=== PATIENT | female | born 1970 | race Caucasian/White ===

== ENCOUNTER → 2018-05-21 | Outpatient (CLI) | payer BC ==
[~2018-05-21] MED LIST: ACETAMINOPHEN W1 TA6 PO; BUPROPION PO; CARDIZEM CD 12120 MG PO; CELEXA10 MG PO; DILTIAZEM; FASTIN30 MG PO; GLUCOPHAGE500 MG/TAB PO; HCTZ; HCTZ 25MG TAB25 MG PO; NORCO 325 MG-51 TAB PO; VALIUM 5MG T5 MG/TAB PO; WELLBUTRIN XL150 MG PO; ZESTRIL 5MG5 MG PO
== END ==
LOC: MC.RAD 07:40
DX: Z12.31 Encounter for screening mammogram for malignant neoplasm of breast (principal)

== ENCOUNTER 2018-11-24 22:06 | Emergency (ER) | payer BC ==
[~2018-11-24] VITALS: Ht 172.7 cm; Wt 120.5 kg
[2018-11-24 22:18] VITALS: TEMP 99.8
[2018-11-24 23:13] LABS: MEAN CELL VOLUME 75 fl (80.0-100.0); MEAN CORPUSCULAR HGB CONC 31 g/dl (33.0-37.0); MEAN PLATELET VOLUME 10.4 fl (7.4-10.4); PLATELET COUNT 417 K/mm3 (130-400); RED BLOOD COUNT 4.19 M/mm3 (4.10-5.30); REDCELL DISTRIBUTION WIDTH-CV 16.8 % (11.5-14.5)
[2018-11-24 23:16] LABS: HEMATOCRIT 31.4 % (37.0-47.0); HEMOGLOBIN 9.8 g/dl (12.5-16.0); MEAN CORPUSCULAR HEMOGLOBIN 23 pg (27.0-31.0)
[2018-11-24 23:21] LABS: ALANINE AMINOTRANSFERASE 20 U/L (9-52); ALBUMIN 3.8 gm/dL (3.5-5.0); ALKALINE PHOSPHATASE 89 U/L (50-136); ANION GAP 10 mmol/L (7-16); AST,SGOT 21 U/L (15-37); BILIRUBIN,TOTAL 0.2 mg/dL (0.0-1.0); BLOOD UREA NITROGEN 14 mg/dL (7-17); CALCIUM 8.8 mg/dL (8.4-10.2); CARBON DIOXIDE 25 mmol/L (22-30); CHLORIDE 105 mmol/L (98-107); CREATININE, serum 0.95 (0.52-1.25); GLUCOSE 104 mg/dL (74-106); LIPASE 141 U/L (23-300); POTASSIUM 3.5 mmol/L (3.4-5.0); SODIUM 140 mmol/L (137-145); TOTAL PROTEIN 6.9 gm/dL (6.4-8.2)
[2018-11-24 23:32] LABS: TROPONIN-I < 0.012 ng/mL (0.000-0.035)
[2018-11-24 23:43] LABS: BAND 5 % (0-10); BASOPHIL 1 % (0-2); EOSINOPHIL 2 % (0-4); LYMPHOCYTE 45 % (20.0-51.0); NEUTROPHILS 41 % (42.0-75.2); PLATELET ESTIMATE INCREASED (NORMAL)
[2018-11-24 23:44] LABS: ANISOCYTOSIS 1+; HYPERSEGMENTED POLYS PRESENT; HYPOCHROMIA 2+; POIKILOCYTOSIS 1+; POLYCHROMASIA 1+
[2018-11-25 01:48] VITALS: BP 106/71; PULSE 76
== END 2018-11-25 01:48 | disposition home or self-care (01) ==
LOC: COL.ER 22:06
PROVIDERS: Emergency Medicine
DX: R07.9 Chest pain, unspecified (principal); I10 Essential (primary) hypertension; E78.5 Hyperlipidemia, unspecified; K21.9 Gastro-esophageal reflux disease without esophagitis; F32.9 Major depressive disorder, single episode, unspecified; E66.9 Obesity, unspecified; R73.03 Prediabetes; Z79.84 Long term (current) use of oral hypoglycemic drugs; Z90.49 Acquired absence of other specified parts of digestive tract; Z98.890 Other specified postprocedural states

== ENCOUNTER → 2018-12-22 | Outpatient (CLI) | payer BC | LOC: COL.CARD 06:30 | DX: R07.9 Chest pain, unspecified (principal) ==

== ENCOUNTER 2020-03-19 01:16 | Inpatient (IN) | payer BC ==
[2020-03-19] VITALS (14 sets, daily range): BP systolic 110–135; BP diastolic 49–74; PULSE 60–83; TEMP 97.6–97.8
[~2020-03-19] VITALS: Ht 172.7 cm; Wt 116.8 kg
[2020-03-19 02:19] LABS: COLLECTION METHOD CLEAN CATCH
[2020-03-19 02:21] LABS: BASO % 0.2 % (0.0-2.0); EOS % 0.2 % (0-4.0); GRAN # 8.2 (1.4-6.5); HEMATOCRIT 39.9 % (37.0-47.0); HEMOGLOBIN 13.7 g/dl (12.5-16.0); LYMPH # 3.8 (1.2-3.4); LYMPH % 29.3 % (20.0-51.0); MEAN CELL VOLUME 84 fl (80.0-100.0); MEAN CORPUSCULAR HEMOGLOBIN 29 pg (27.0-31.0); MEAN CORPUSCULAR HGB CONC 34 g/dl (33.0-37.0); MEAN PLATELET VOLUME 10.7 fl (7.4-10.4); MONO # 0.9 (0.1-0.6); PLATELET COUNT 393 K/mm3 (130-400); RED BLOOD COUNT 4.73 M/mm3 (4.10-5.30); REDCELL DISTRIBUTION WIDTH-CV 13.3 % (11.5-14.5)
[2020-03-19 02:30] LABS: MUCOUS Present /lpf; PH 5 (5-8); URINE APPEARANCE Hazy; URINE BACTERIA None Seen /hpf; URINE BILIRUBIN Negative (NEGATIVE); URINE BLOOD Negative (NEGATIVE); URINE COLOR Yellow; URINE GLUCOSE Negative (NEGATIVE); URINE KETONE Negative (NEGATIVE); URINE LEUKOCYTE ESTERASE Negative (NEGATIVE); URINE NITRATE Negative (NEGATIVE); URINE PROTEIN(semi-quant) Negative (NEGATIVE); URINE RBC 0-2 /hpf; URINE UROBILINOGEN Negative (NEGATIVE)
[2020-03-19 02:32] LABS: ALBUMIN 4.4 gm/dL (3.5-5.0); BILIRUBIN,TOTAL 0.6 mg/dL (0.0-1.0); CREATININE, serum 0.8 (0.52-1.25); TOTAL PROTEIN 7.5 gm/dL (6.4-8.2)
[2020-03-19 02:35] LABS: POTASSIUM 2.9 mmol/L (3.4-5.0)
[2020-03-19] MEDS ORDERED: LIPITOR 10MG10 MG PO (06:07)
[2020-03-19] MEDS ORDERED: PROFERRIN ES12 MG PO (06:08)
[2020-03-19] MEDS ORDERED: CARDIZEM CD 12120 MG PO (06:08)
[2020-03-19] MEDS ORDERED: DINO-LIFE1 CTB PO (06:08)
--- NOTE | 2020-03-19 08:30 | NUR ---
Assumed care of patient at this time. Oriented to room and plan of care.
--- NOTE | 2020-03-19 11:15 | NUR ---
Patient up to bathroom with RN stand by assist x1. Patient tolerates activity well. Srinivasan catheter dc'd. Patient returns to bed.
--- NOTE | 2020-03-19 13:30 | NUR ---
Patient up to bathroom with stand by assist. Unable to void. Will continue to monitor.
--- NOTE | 2020-03-19 16:00 | NUR ---
Patient up to bathroom. Unable to void. Srinivasan catheter used to drain bladder, 200ml clear yellow urine noted. Dressing noted to have new bright red drainage. Roles to bedside to evaluate. Dressing removed, incision approximated, pressure dressing applied by this RN. Denies pain or needs at this time. Call light within reach.
[2020-03-20 03:20] VITALS: BP 120/58; PULSE 70; TEMP 98
[2020-03-20 08:15] VITALS: BP 126/70; PULSE 71; TEMP 97.7
[2020-03-20] MEDS ORDERED: PERCOCET 325 MG1 TA2 PO (09:48)
[2020-03-20] MEDS ORDERED: IBU600 MG PO (09:49)
[2020-03-20 10:36] LABS: CALCIUM 8.6 mg/dL (8.4-10.2); CREATININE, serum 0.8 (0.52-1.25); POTASSIUM 4.4 mmol/L (3.4-5.0)
== END 2020-03-20 12:45 | disposition home or self-care (01) | DRG 743 ==
LOC: COL.ER 01:16 → OB 05:00
PROVIDERS: Emergency Medicine; ADMIT Obstetrics & Gynecology
PROC: 0UT10ZZ Resection of Left Ovary, Open Approach (ICD-10-PCS; principal; 2020-03-19 07:00)
PROC: 0UT60ZZ Resection of Left Fallopian Tube, Open Approach (ICD-10-PCS; 2020-03-19 07:00)
DX: N83.53 Torsion of ovary, ovarian pedicle and fallopian tube (principal); E87.6 Hypokalemia; I10 Essential (primary) hypertension; F32.9 Major depressive disorder, single episode, unspecified; E66.9 Obesity, unspecified; M54.9 Dorsalgia, unspecified; G89.29 Other chronic pain; D25.1 Intramural leiomyoma of uterus
CPT/HCPCS: A4314; J0171; J0690; J1100; J1170; J1885; J2270; J2405; J2704; J2710; J3010; J3480; J7030; J7120; Q9967

== ENCOUNTER → 2020-04-24 | Outpatient (CLI) | payer BC ==
[~2020-04-24] MED LIST changes: +DINO-LIFE1 CTB PO; +IBU600 MG PO; +LIPITOR 10MG10 MG PO; +PERCOCET 325 MG1 TA2 PO; +PROFERRIN ES12 MG PO
== END ==
LOC: MC.RAD 08:08
DX: Z12.31 Encounter for screening mammogram for malignant neoplasm of breast (principal)

== ENCOUNTER → 2022-09-06 | Outpatient (CLI) | payer BC | LOC: MC.RAD 13:51 | DX: Z12.31 Encounter for screening mammogram for malignant neoplasm of breast (principal) ==

== ENCOUNTER → 2023-12-04 | Outpatient (CLI) | payer BC | LOC: MC.RAD 08:00 | DX: Z12.31 Encounter for screening mammogram for malignant neoplasm of breast (principal) ==

== ENCOUNTER 2024-02-29 16:49 | Emergency (ER) | payer BC ==
[~2024-02-29] VITALS: Ht 172.7 cm; Wt 84.1 kg
[2024-02-29 17:02] VITALS: TEMP 98.1
[2024-02-29] MEDS ORDERED: NS 1,000 ML IV ONE (17:45)
[2024-02-29] MEDS ORDERED: Ondansetron 4 MG/2 ML VIAL IV ONE (17:45)
[2024-02-29] MEDS ORDERED: Morphine 4 MG/ML VIAL IV ONE (17:45)
[2024-02-29 18:14] LABS: BASO % 0.4 % (0.0-2.0); EOS % 0.5 % (0.0-4.0); GRAN # 3.9 K/mm3 (1.4-6.5); GRAN % 46.3 % (42.2-75.2); HEMATOCRIT 40.4 % (37.0-47.0); HEMOGLOBIN 13.6 g/dl (12.5-16.0); LYMPH # 3.9 K/mm3 (1.2-3.4); LYMPH % 46.6 % (20.0-51.0); MEAN CELL VOLUME 89 fl (80.0-100.0); MEAN CORPUSCULAR HEMOGLOBIN 30 pg (27-31); MEAN CORPUSCULAR HGB CONC 34 g/dl (33.0-37.0); MEAN PLATELET VOLUME 11.9 fl (7.4-10.4); MONO # 0.5 K/mm3 (0.1-0.6); MONO % 6.1 % (1.7-9.3); PLATELET COUNT 228 K/mm3 (130-400); RED BLOOD COUNT 4.54 M/mm3 (4.10-5.30); REDCELL DISTRIBUTION WIDTH-CV 13.5 % (11.5-14.5)
[2024-02-29 19:08] LABS: ALANINE AMINOTRANSFERASE 49 U/L (0-55); ALBUMIN 3.9 g/dL (3.5-5.0); ALKALINE PHOSPHATASE 95 U/L (40-150); ANION GAP 13 mmol/L (7-16); AST,SGOT 36 U/L (5-34); BILIRUBIN,TOTAL 0.5 mg/dL (0.2-1.2); BLOOD UREA NITROGEN 16 mg/dL (10-20); CALCIUM 9.1 mg/dL (8.4-10.2); CHLORIDE 110 mEq/L (98-107); CREATININE, serum 0.76 mg/dL (0.57-1.11); GLUCOSE 100 mg/dL (70-99); LIPASE 42 U/L (8-78); POTASSIUM 3.6 mEq/L (3.5-4.5); SODIUM 144 mEq/L (136-145); TOTAL PROTEIN 6.5 g/dl (6.2-8.1)
[2024-02-29 19:16] LABS: TROPONIN-I < 0.010 ng/mL (0.00-0.033)
[2024-02-29] MEDS ORDERED: Iohexol 300 - 100 ML VIAL IV ONE (19:21)
[2024-02-29] MEDS ORDERED: NS 50 ML IV SCH (19:21)
[2024-02-29] MEDS ORDERED: HYDROmorphone 0.5 MG/0.5 ML SYRINGE IV ONE (20:30)
[2024-02-29] MEDS ORDERED: PEPCID40 MG PO (21:41)
[2024-02-29] MEDS ORDERED: Mag/Al Hydrox/Simeth Susp 30 ML CUP PO ONE (21:45)
[2024-02-29 22:11] VITALS: BP 147/71; PULSE 57
== END 2024-02-29 22:12 | disposition home or self-care (01) ==
LOC: COL.ER 16:49
PROVIDERS: Emergency Medicine
DX: R10.13 Epigastric pain (principal); R10.31 Right lower quadrant pain; R10.32 Left lower quadrant pain
CPT/HCPCS: J1170; J2270; J2405; J7030; Q9967